=== PATIENT | male | born 1965 | race Caucasian/White ===

== ENCOUNTER → 2016-04-24 | Outpatient (CLI) | payer BC ==
[~2016-04-24] MED LIST: Cephalexin500 MG PO; GOOD NEIGHBOR200 MG PO
--- NOTE | 2016-04-24 16:30 | RADIOLOGY REPORT PS360 ---
EXAM: CERVICAL SPINE 4 OR 5 VIEWS HISTORY: NECK PAIN COMPARISON: None FINDINGS: Normal alignment. No fracture or dislocation. No lytic or blastic change. No significant degenerative change. There is minimal endplate irregularity at C5-C6 with very slight decrease in the disc space. IMPRESSION: 1. No acute finding. 2. Minimal degenerative disc disease C5-C6
== END ==
LOC: RAD 14:22
DX: M54.2 Cervicalgia (principal)

== ENCOUNTER → 2017-03-04 | Outpatient (CLI) | payer BC | LOC: UTC.OUT 13:11 | DX: Z02.4 Encounter for examination for driving license (principal) ==

== ENCOUNTER → 2017-03-05 | Outpatient (CLI) | payer BC | LOC: UTC.OUT 12:10 | DX: Z02.4 Encounter for examination for driving license (principal) ==